=== PATIENT | male | born 1970 | race Caucasian/White ===

== ENCOUNTER 2017-05-22 08:34 | Day surgery (SDC) | payer OTHER ==
[~2017-05-22] VITALS: Ht 172.7 cm; Wt 63.5 kg
[~2017-05-22 08:34] MED LIST: ADDERALL XR 2020 MG PO; ADVAIR 100/501 DISK IH; ALPRAZOLAM1 MG PO; BUPROPION XL150 MG PO; GABAPENTIN300 MG PO; OXYCODONE HCL10 MG PO; PERCOCET 7.5-31 EACH PO; PRILOSEC20 MG PO; PROAIR HFA8.5 GM IH; SOMA350 M1 PO; SOMA350 MG PO; VALIUM5 MG PO
[2017-05-22 09:19] VITALS: BP 102/67
[2017-05-22] MEDS ORDERED: TORADOL10 MG PO (11:46)
[2017-05-22 12:50] VITALS: BP 155/88
[2017-05-22 13:11] VITALS: BP 167/74
== END 2017-05-22 13:25 | disposition home or self-care (01) ==
LOC: SDC 08:34
PROC: 0YU50JZ Supplement Right Inguinal Region with Synthetic Substitute, Open Approach (ICD-10-PCS; principal; 2017-05-22)
DX: K40.90 Unilateral inguinal hernia, without obstruction or gangrene, not specified as recurrent (principal); J44.9 Chronic obstructive pulmonary disease, unspecified; M79.1 Myalgia; Z79.891 Long term (current) use of opiate analgesic; F17.210 Nicotine dependence, cigarettes, uncomplicated
CPT/HCPCS: C1781; J0690; J1100; J1170; J1885; J2250; J2405; J2710; J3475; J7643; S0020